=== PATIENT | female | born 2000 | race Caucasian/White ===

== ENCOUNTER 2019-02-10 14:38 | Emergency (ER) | payer BC ==
[~2019-02-10] VITALS: Ht 154.9 cm; Wt 60.2 kg
[2019-02-10 15:44] LABS: BASOPHILS % (AUTO) 0.3 % (0-1); EOSINOPHILS % (AUTO) 0.3 % (0-6); HEMATOCRIT 43.2 % (35.0-45.0); HEMOGLOBIN 14.6 g/dl (12.0-16.0); LYMPHOCYTES # (AUTO) 1.3 X10'3 (1.1-4.8); LYMPHOCYTES % (AUTO) 15.6 % (21-51); MEAN CORPUSCULAR HEMOGLOBIN 28.6 PG (27.0-31.0); MEAN CORPUSCULAR HGB CONC 33.7 g/dL (33.0-36.5); MEAN CORPUSCULAR VOLUME 85.1 FL (78-98); MEAN PLATELET VOLUME 7.9 FL (7.4-10.4); MONOCYTES # (AUTO) 0.7 X10'3 (0-0.9); MONOCYTES % (AUTO) 8.1 % (2-12); NEUTROPHILS % (AUTO) 75.7 % (42-75); PLATELET COUNT 299 X10'3 (140-440); RED BLOOD COUNT 5.08 X10'6 (4.20-5.60)
[2019-02-10 16:00] LABS: ALANINE AMINOTRANSFERASE 69 U/L (12-78); ALBUMIN 4.8 G/DL (3.4-5.0); ALBUMIN/GLOBULIN RATIO 1.3 (1.1-1.5); ALKALINE PHOSPHATASE 83 IU/L (20-180); ANION GAP 13 (8-16); ASPARTATE AMINO TRANSFERASE 30 U/L (10-37); BILIRUBIN,TOTAL 0.3 MG/DL (0.1-1.0); BLOOD UREA NITROGEN 18 MG/DL (7-18); CALCIUM 9.9 MG/DL (8.5-10.1); CHLORIDE 102 MMOL/L (99-107); CREATININE 0.75 MG/DL (0.40-0.90); GLUCOSE 95 MG/DL (70-104); POTASSIUM 4.5 MMOL/L (3.5-5.1); SODIUM 142 MMOL/L (135-145); TOTAL CARBON DIOXIDE 27.5 MMOL/L (24-32); TOTAL PROTEIN 8.5 G/DL (6.4-8.2); eGFR > 90 ML/MIN
[2019-02-10 16:12] LABS: ETHANOL < 0.010 GM/DL (0.0-0.010)
[2019-02-10 17:02] LABS: URINE HCG NEGATIVE (NEG)
[2019-02-10 17:08] LABS: CLARITY,URINE CLEAR (Clear); COLOR,URINE YELLOW (Yellow); GLUCOSE, URINE NEGATIVE (Neg); KETONES,URINE NEGATIVE (Neg); LEUKOCYTE ESTERASE ,URINE NEGATIVE (Neg); NITRITES, URINE NEGATIVE (Neg); OCCULT BLOOD,URINE NEGATIVE (Neg); PROTEIN,URINE NEGATIVE (Neg); UROBILINOGEN,URINE 0.2 E.U/dL (0.2-1.0)
--- NOTE | 2019-02-10 17:11 | NUR ---
pt placed in rm 21 from main ER, pt calm and cooperative. Accompanied by her parents. Pt is tearful. Oriented to unit. Urine sample obtained. Parents at bedside.
[2019-02-10 17:12] LABS: UA COLLECTION TYPE CLN CATCH MIDSTREAM
[2019-02-10 17:16] LABS: URINE AMPHETAMINE SCREEN NEGATIVE (Neg); URINE BARBITUATE SCREEN NEGATIVE (Neg); URINE BENZODIAZEPINES SCREEN NEGATIVE (Neg); URINE CANNABINOID SCREEN POSITIVE (Neg); URINE COCAINE SCREEN NEGATIVE (Neg); URINE METHADONE SCREEN NEGATIVE (Neg); URINE OPIATE SCREEN NEGATIVE (Neg); URINE PHENCYCLIDINE SCREEN NEGATIVE (Neg)
--- NOTE | 2019-02-10 17:26 | NUR ---
[facility]
--- NOTE | 2019-02-10 20:00 | NUR ---
One to one with the patient to assess for severity of mental health symptoms. The patient's parents are at the bedside and are very supportive of her but also very worried over increasingly bizarre and out of character behaviors. She has not slept at all for at least the past 4 days. 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 She has been binge eating. She at one point was eating the dog food in the house. She is very guarded and disorganized. She appears to be responding to internal stimuli. She admitted to hearing voices but then denied that she hears voices. She does not want to stay and seek psychiatric treatment. She has never been in a psychiatric facility.
[2019-02-10] MEDS ORDERED: OLANZapine 2.5MG tablet PO STA (20:25)
--- NOTE | 2019-02-10 21:30 | NUR ---
[facility] crisis staff here to evaluate the patient
--- NOTE | 2019-02-10 22:05 | NUR ---
The patient has consistently refused to take the zyprexa that was ordered for her.
--- NOTE | 2019-02-11 00:01 | NUR ---
The patient appears to be sleeping
--- NOTE | 2019-02-11 02:45 | NUR ---
The patient appears to be sleeping
--- NOTE | 2019-02-11 04:39 | NUR ---
The patient appears to be asleep at this time
[2019-02-11 05:56] VITALS: BP 113/73
--- NOTE | 2019-02-11 07:00 | NUR ---
Received Pt in bed sleeping w/o distress at change of shift.
[2019-02-11] MEDS ORDERED: OLANZapine 2.5MG tablet PO SCH (08:00)
--- NOTE | 2019-02-11 10:29 | NUR ---
breaking primary RN, pt is prone in bed, regular breathing present, eyes closed, no s/s of agitation observed
--- NOTE | 2019-02-11 11:25 | NUR ---
Pt remains in bed sleeping w/o distress. Pt slept through breakfast, ands allowed to do so because of multiple days of insomnia upon addmission. Pt has been accepted to [facility].
[2019-02-11] MEDS ORDERED: ESCI10TA PO (14:47)
[2019-02-11] MEDS ORDERED: OLAN5TAB3 PO (14:47)
== END 2019-02-11 14:30 | disposition home or self-care (01) ==
LOC: ER 14:38
DX: R45.851 Suicidal ideations (principal); F32.9 Major depressive disorder, single episode, unspecified; G47.00 Insomnia, unspecified
CPT/HCPCS: 36415; 80053; 80305; 80320; 81003; 81025; 84443; 85025; 99285

== ENCOUNTER 2019-02-11 10:35 | Inpatient (IN) | payer BC ==
[~2019-02-11] VITALS: Ht 154.9 cm; Wt 57.8 kg
[2019-02-11] MEDS ORDERED: ESCI10TA PO (14:47)
[2019-02-11] MEDS ORDERED: OLAN5TAB3 PO (14:47)
[2019-02-11] MEDS ORDERED: magnesium hydroxide 30ml (MOM) UD suspension PO PRN (14:55)
[2019-02-11] MEDS ORDERED: acetaminophen 325mg tablet PO PRN ×2 (14:55)
[2019-02-11] MEDS ORDERED: hydrOXYzine 25 MG tablet PO PRN (14:55)
[2019-02-11] MEDS ORDERED: loperamide 2mg capsule PO PRN (14:55)
[2019-02-11] MEDS ORDERED: mag hydrox/Alum hydrox/simeth 30ml oral suspension PO PRN (14:55)
[2019-02-11] MEDS ORDERED: LORazepam 1 MG tablet PO PRN (14:55)
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
[2019-02-11 17:32] VITALS: BP 138/90
[2019-02-11 20:53] VITALS: BP 144/63
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
[2019-02-12 08:00] VITALS: BP 121/79
[2019-02-12 08:16] LABS: CHOL/HDL RATIO 2.7 (0.00-4.99); CHOLESTEROL 176 MG/DL (0-200); HDL CHOLESTEROL 66 MG/DL (35-60); LDL CHOLESTEROL 104 MG/DL (50-100); TRIGLYCERIDES 86 MG/DL (20-135)
[2019-02-12 08:19] LABS: HEMOGLOBIN A1C 5.3 % (4.5-6.2)
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
[2019-02-12 20:00] VITALS: BP 121/77
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
[2019-02-13 08:35] VITALS: BP 130/91
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
[2019-02-13 19:57] VITALS: BP 138/93
[2019-02-13 19:58] VITALS: BP 122/81
[2019-02-13] MEDS ORDERED: OLANZapine 2.5MG tablet PO SCH (21:00)
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
[2019-02-14] MEDS ORDERED: FLUoxetine 20mg capsule PO SCH (08:00)
[2019-02-14 08:37] VITALS: BP 121/87
[2019-02-14] MEDS ORDERED: OLAN2.5T28 PO (13:06)
[2019-02-14] MEDS ORDERED: FLUO20CA22 PO (13:06)
--- NOTE | 2019-02-14 13:53 | NUR ---
Discharge note: Client is discharging home at 1400 hours today. Client condition has greatly improved and she is no longer gravely disabled. All belongings were returned to client satisfaction. Client will be escorted home by family members. All follow up information was relayed to client and she gave a verbal rebound demo of understanding and states she will comply with the conditions of her discharge. She has her prescriptions and her [facility] choice is [facility] in [place]. Client is alert and oriented x 4 and is aware of all conditions of discharge.
== END 2019-02-14 14:00 | disposition home or self-care (01) | DRG 885 ==
LOC: ADULT MH 14:42
PROVIDERS: ADMIT Psychiatry & Neurology Psychiatry; ATTEND Psychiatry & Neurology Psychiatry
DX: F33.1 Major depressive disorder, recurrent, moderate (principal); F12.90 Cannabis use, unspecified, uncomplicated; F29 Unspecified psychosis not due to a substance or known physiological condition; F41.9 Anxiety disorder, unspecified; Z88.0 Allergy status to penicillin; Z86.59 Personal history of other mental and behavioral disorders; Z79.899 Other long term (current) drug therapy
CPT/HCPCS: 36415; 80061; 83036; 87081

== ENCOUNTER 2024-10-07 18:50 | Inpatient (IN) | payer BC ==
[~2024-10-07] VITALS: Ht 154.9 cm; Wt 55.7 kg
[~2024-10-07 18:50] MED LIST: FLUO-167 PO; OLAN2.5T77 PO
[2024-10-07 20:12] VITALS: BP 129/93; PULSE 93; RESP 20; TEMP 98.1; O2SAT 99
[2024-10-07] MEDS ORDERED: loperamide 2mg capsule PO PRN (20:45)
[2024-10-07] MEDS ORDERED: diphenhydrAMINE 25mg capsule PO PRN (20:45)
[2024-10-07] MEDS ORDERED: acetaminophen 325mg tablet PO PRN ×2 (20:45)
[2024-10-07] MEDS ORDERED: magnesium hydroxide 30ml (MOM) UD suspension PO PRN (20:45)
[2024-10-07] MEDS ORDERED: chlorproMAZINE 25mg tablet PO PRN (20:45)
[2024-10-07] MEDS ORDERED: mag hydrox/Alum hydrox/simeth 30ml oral suspension PO PRN (20:45)
[2024-10-07 21:00] VITALS: RESP 20; O2SAT 99
[2024-10-07] MEDS ORDERED: DESV25TA PO (22:35)
[2024-10-07] MEDS ORDERED: LAMO25TA4 PO (22:35)
[2024-10-08 07:30] VITALS: BP 121/83; PULSE 83; RESP 16; TEMP 97.9; O2SAT 99
[2024-10-08] MEDS: DESVENLAFAXINE 25 MG PO SCH (08:00)
[2024-10-08] MEDS: lamoTRIgine 100mg tablet PO SCH (08:39)
[2024-10-08 08:53] LABS: HEMOGLOBIN A1C 5.1 % (4.5-6.2)
[2024-10-08 09:02] LABS: ALANINE AMINOTRANSFERASE 29 U/L (12-78); ALBUMIN 4.5 G/DL (3.4-5.0); ALBUMIN/GLOBULIN RATIO 1.3 (1.1-1.5); ALKALINE PHOSPHATASE 87 IU/L (46-116); ANION GAP 10 (8-16); ASPARTATE AMINO TRANSFERASE 16 U/L (10-37); BILIRUBIN,TOTAL 0.7 MG/DL (0.1-1.0); BLOOD UREA NITROGEN 13 MG/DL (7-18); BUN/CREATININE RATIO 17.6 (10.0-20.0); CALCIUM 9.7 MG/DL (8.5-10.1); CHLORIDE 102 MMOL/L (99-107); CHOL/HDL RATIO 2.3 (0.00-4.99); CHOLESTEROL 158 MG/DL (0-200); CREATININE 0.74 MG/DL (0.40-0.90); GLUCOSE 110 MG/DL (70-104); HDL CHOLESTEROL 69 MG/DL (35-60); LDL CHOLESTEROL 82 MG/DL (50-100); POTASSIUM 4.4 MMOL/L (3.5-5.1); SODIUM 138 MMOL/L (135-145); TRIGLYCERIDES 50 MG/DL (20-135); eCRCL 87 ML/MIN; eGFR > 90 ML/MIN
--- NOTE | 2024-10-08 13:11 | HISTORY AND PHYSICAL ---
History & Physical - Blank History and Physical CHIEF COMPLIANT DELUSIONS AND SUICIDAL IDEATIONS HISTORY OF PRESENT ILLNESS The patient is here because she is delusional and having suicidal ideation. She has been taking her medications but her symptoms are not adequately controlled and she is now exhibiting some hallucinations and delusional behavior. CHART REVIEW Patient admitted on a 5150 for DTS. 5150 states that patient is "having suicidal thoughts and is not able to articulate a plan for her own safety due to mental health history and disorganized thinking the client is danger to self". Nurse to nurse with [facility] at [facility] completed and report was given that patient had PRN lorazepam at 1817 related to "increased anxiety and making delusional statements about FBI". 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 She resumed taking prescribed medications on 10/04/24 due to "increased voices and suicidal thoughts". Patient is well groomed, cooperative, and pleasant. Patient confirms AH of "whispers and movement". Patient endorses SI with plan to "overdose on home medications" but contracts for safety while on the unit. ASSESSMENT The patient was interviewed in observation room. The patient was actively resting in bed with eyes. The patient endorses "I just been lying to everybody that I have been going to work and when I am at work I been high on THC gummies and pen." "I have bipolar in the past I been here before and I was scaring my parents I was on medications and I stopped I convinced people I was not Bipolar I have bulimia. I still do it, eat and then throw up." "Even though sometimes I go days binging and purging." I never was on anything for it." "I was seeing a therapist but I stopped because I thought everything I was fine." "I have been going to a psychiatrist but I just been lying to her." "that everything is fine and that i don't call her when I probably should because I am missing work." Yes, I am depressed." "I am suicidal with a plan to drive into something." Denies HI. Denies AVH. "I haven't taken my meds over a day or so." The patient is stable no acute distress noted. The patietn presents as tearful, and distracted. Will continue daily assessment and adjusting treatment as needed. Closely monitor behavior and response to medication during hospitalization. Discussed treatment plan with patient. ASE/risks and benefits of chosen treatment. She verbalized understanding and consented to treatment. Collateral received from the patient's mother Merissa, with patient's consent. Merissa endorses Lynne is staying with her at the moment due to her recent psychotic break to ensure she is taking her medications. Merissa endorses Lynne does have her own apartment and lives with a roommate. Merissa endorses Lynne stopped attending therapy for about 6 months and she been off her meds for a few days ago. Merissa endorses she will email Lynne's gene-X results. Merissa endorses Latuda worked really well in the past for Lynne but she just stopped taking it. Merissa endorses she will drop off Lynne's pristiq. REVIEW OF LABS URINE TOX SCREEN POSITIVE FOR THC URINALYSIS NEGATIVE MENTAL STATUS EXAM APPEARANCE: AVERAGE WEIGHT AND HEIGHT FEMALE. DRESSED IN GREEN SCRUBS. LONG DARK BROWN HAIR. SPEECH: CIRCUMSTANTIAL EYE CONTACT: AVOIDANT ATTENTION: DISTRACTED AFFECT: LIABLE MOOD: DEPRESSED ORIENTATION IMPAIRMENT: NONE MEMORY IMPAIRMENT: NONE HALLUCINATIONS: NONE SUICIDALITY: IDEATION,PLAN DELUSIONS: NONE BEHAVIOR: GUARDED JUDGMENT: POOR INSIGHT: POOR Total Time Spent 120 minutes TREATMENT LAMOTRIGINE 100 MG P.O. Q.H.S. LATUDA 40 MG P.O. WITH SUPPER COGENTIN 1 MG P.O. B.I.D. PRISTIQ 25MG PO DAILY Monitoring by Staff, Milieu, Group, and Individual counseling as needed -- According to the [place] Suicide Assessment the above named patient is on Q15 MINUTE CHECKS. [id number]- The patient does not have a good safety plan for discharge at this time. We are still titrating medications to an effective dose while maintaining a therapeutic environment to prevent decompensation and readmission. REVIEW OF Clinical notes [X ] RN notes [X] PCT documentation [X] SW notes Labs [ X] Medications [X] Care trends/care activity [X] Vitals [X] DISCUSSION WITH welcome wagon hostess [X] Staff SW [X] Treatment Team [X] DISCHARGE UNSURE AT THIS TIME. DISCHARGE HOME ONCE STABLE. Past Psychiatric History Past Psychiatric History [facility] Past Medical History Past Medical History SEE MEDICAL H AND P Past Surgical History Past Surgical History DENIES ANY SURGICAL HISTORY Past Family History Patient History: Patient reports no known family medical history. Personal History Current Living Situation LIVES WITH A ROOMMATE IN AN APARTMENT Marital & Relationship History NEVER . 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
--- NOTE | 2024-10-08 18:34 | HISTORY AND PHYSICAL-Residence ---
History & Physical Providers to CC Resident Creating Document: FAREED BA RES ~ History of Present Illness Reason for Admit\\Complaint: DELUSIONS AND SUICIDAL IDEATIONS History of Present Illness 18 cc HTN female with medical history of nicotine use, marijuana use, alcohol use.admitted on a 5150 for DTS. 5150 states that patient is "having suicidal thoughts and is not able to articulate a plan for her own safety due to mental health history and disorganized thinking the client is danger to self". Nurse to nurse with Emer[facility] at [facility] completed and report was given that patient had PRN lorazepam at 1817 related to "increased anxiety and making delusional statements about FBI". 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 She resumed taking prescribed medications on 10/04/24 due to "increased voices and suicidal thoughts". Patient is well groomed, cooperative, and pleasant. Patient confirms AH of "whispers and movement". Patient endorses SI with plan to "overdose on home medications" but contracts for safety while on the unit. She denied chest pain, shortness of breath, palpitations, wheezing, fever, cough, abdominal pain, abdominal distention, decreased urine output, pedal edema, facial puffiness, rash. Allergies: Coded Allergies: Penicillins (Verified Allergy, Unknown, RASH, 10/07/24) Home Medications Home Medications Active Reported Pristiq ER (Desvenlafaxine Succinate) 25 Mg Tab.er.24h 1 Tab PO DAILY 30 Days Lamictal (Lamotrigine) 25 Mg Tab.disper 4 Tab PO DAILY 30 Days Past Medical History Past Medical History Nicotine use Marijuana use Alcohol use Past Surgical History Surgical History Comment Noncontributory Family History Family History: Patient reports no known family medical history. Past Social History Smoking: Quit greater than 1 year Alcohol Use: None Drug Use: None ROS ROS Reviewed in full and negative except positive pertinent as in the HPI Exam Vitals: Vital Signs Date Time Temp Pulse Resp B/P (MAP) Pulse Ox O2 Delivery O2 Flow Rate FiO2 10/08/24 07:30 Room Air 10/08/24 07:30 97.9 83 16 121/83 (96) 99 General: Physical Exam General: Alert, awake, oriented to time place person. Not in acute distress. HEENT: No pallor, no icterus. No JVD. No carotid upstroke, Cardiovascular system: Regular rate and rhythm. First and second heart sound are heard. No murmurs rubs Respiratory system: Bilateral vesicular breath sounds are heard. No crepitations. No expiratory wheezing Gastrointestinal: Nontender, Soft, nondistended, no rigidity, no guarding, no rebound tenderness Extremities: No clubbing, no edema, no cyanosis Central nervous system: No function neurological deficits Diagnostic Data Last Recorded Lab Results: 10/08/24 0754 Advance Care Planning Advanced Care planning: Add on additional 30 min Additional Plan Assessment and plan per [facility] unit and hospitalist Internal Medicine team we will follow up the patient for medical needs Bipolar one disorder, depressive Major depressive disorder Suicidal ideations For above problems -Management plan per [facility] unit Marijuana use Alcohol use Patient may need social service agency director and substance use consults Vitals are stable CBC is ordered CMP is normal with A1c 5.1 and LDL 82 [facility]ed [facility] IM resident Date of Service: October 08, 2024 Billing Provider: BJ HERNANDEZ MD Common Visit Codes: [id number] INP/OBS CARE (HIGH) FAREED BA, АНДРЕЙ October 08, 2024 18:34 BJ HERNANDEZ MD October 08, 2024 20:30
[2024-10-08 19:00] VITALS: RESP 16; O2SAT 98
[2024-10-08 20:00] VITALS: BP 117/63; PULSE 84; RESP 16; TEMP 97.9; O2SAT 98
[2024-10-08] MEDS: hydrOXYzine 25 MG tablet PO PRN (20:08)
[2024-10-08] MEDS: traZODone 50mg tablet PO PRN (20:09)
[2024-10-09 07:30] VITALS: BP 111/71; PULSE 96; RESP 14; TEMP 97.8; O2SAT 98
[2024-10-09 08:21] LABS: BASOPHILS # (AUTO) 0.1 X10'3 (0-0.2); EOSINOPHILS # (AUTO) 0.1 X10'3 (0-0.9); EOSINOPHILS % (AUTO) 1.7 % (0-6); HEMATOCRIT 43.1 % (35.0-45.0); HEMOGLOBIN 14.1 g/dl (12.0-16.0); LYMPHOCYTES # (AUTO) 1.4 X10'3 (1.1-4.8); LYMPHOCYTES % (AUTO) 19.2 % (21-51); MEAN CORPUSCULAR HEMOGLOBIN 29.2 PG (27.0-31.0); MEAN CORPUSCULAR HGB CONC 32.6 g/dL (33.0-36.5); MEAN CORPUSCULAR VOLUME 89.6 FL (78-98); MONOCYTES # (AUTO) 0.6 X10'3 (0-0.9); MONOCYTES % (AUTO) 8.4 % (2-12); NEUTROPHILS % (AUTO) 69.7 % (42-75); PLATELET COUNT 308 X10'3 (140-440); RED BLOOD COUNT 4.81 X10'6 (4.20-5.60); RED CELL DISTRIBUTION WIDTH 15.4 % (11.5-14.5); WHITE BLOOD COUNT 7.2 X10'3 (4.5-11.0)
--- NOTE | 2024-10-09 17:42 | PROGRESS NOTE ---
Progress Note Dictate Providers to CC ~ Central Line/PICC still needed: N\\A Antibiotic Ordered?: No Objective Vitals Vital Signs Date Time Temp Pulse Resp B/P (MAP) Pulse Ox O2 Delivery O2 Flow Rate FiO2 10/09/24 07:30 Room Air 10/09/24 07:30 97.8 96 14 111/71 (84) 98 Lab Results: 10/08/24 1818 10/08/24 0754 Problem\\Assessment\\Plan Problems/Diagnosis: (1) MDD (major depressive disorder) (2) Psychosis (3) Suicidal ideations (4) Bulimia nervosa Psychiatrist's Progress Note Date of Service: October 09, 2024 Notes Lynne Collins is a 24yo patient who presented to the ED because she is delusional and having suicidal ideation. She has been taking her medications but her symptoms are not adequately controlled and she is now exhibiting some hallucinations and delusional behavior. CHART REVIEW Patient admitted on a 5150 for DTS. 5150 states that patient is "having suicidal thoughts and is not able to articulate a plan for her own safety due to mental health history and disorganized thinking the client is danger to self". Nurse to nurse with [facility] at [facility] completed and report was given that patient had PRN lorazepam at 1817 related to "increased anxiety and making delusional statements about FBI". Patient states she was diagnosed with Bipolar DO and took medication for 6 years before becoming non-compliant with medication one year ago due to "interaction with marijuana use". She resumed taking prescribed medications on 10/04/24 due to "increased voices and suicidal thoughts". Patient is well groomed, cooperative, and pleasant. Patient confirms AH of "whispers and movement". Patient endorses SI with plan to "overdose on home medications" but contracts for safety while on the unit. Patient is a short patient of normal weight. has long dark unwashed greasy hair. She has severely chapped lips. 'I'm a danger to myself and others.' She started to cry. Looks severely depressed. 'I just want to walk.' Poverty of content/speech. Delayed responses with thought blocking and loosening of associations. 'I took a walk and parents came in... everything was fine and... (she starts to cry)...' Feeling really depressed right now. Been going on just today... 'I was sleeping then parents came in and people have been doing everything for me and it's not fair.' 'Everything why I'm here. I want to not be in trouble.' 'I should be in trouble.' 'Because I've done things and not been caught for it.' She feels she should go to long-term. Then changed into clothes and now I'm being a baby... even though I don't have babies.' 'I need to get better for my family.' Denies feeling suicidal currently. Gets a lot of anxiety. Feeling that making eye contact with people. Social anxiety. Being in big crowds and a lot of noise. Having AH. People are talking around me. The voices say 'they don't want to be here. No one wants to be here. The best thing to do it just be good and just be good and have good posture... be polite...' Sometimes hears it would be better off if she weren't here. 'just be good for my parents... I keep saying the same things over and over' Denies VH. Denies Paranoia. 'not anymore.' When she was smoking weed a lot she would get paranoid. 'I just don't know my limits and I just don't care about myself.' Sleep- Slept last night. Sleeping at home. Sometimes sleep too much. Bed at 9- 10pm takes a little a bit to get to sleep. Not waking up multiple times. Get up around 7am almost naturally. Thought she could do it without meds. 'I think I know what I need to do.' 'I need to stay on my medicine.' And once she knows I take it in the morning... and do things during the day and then go to bed.' Starting to feel better on meds. Thinking clears up. Not thinking the FBI is out to get her. 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 Started struggling with mental illness for a long time. Smokes MJ 'I just need to not go buy it.' Goes to see Janet Isaacs office. Has an appt with Janet on . 'I've messed up everything.' 'Not being responsible.' 'put people in danger.' 'my parents, everyone.' 'by not being smart and not being clean.' 'I feel like I need to look people in the eye now.' Feeling a little confused. She states she needs someone to help her with meds. So that she remembers them. She gets frustrated with herself because she feels confused. 'I just keep talking in circles and walking in circles... I just need to be locked in a room.' Very unsure of herself and what she was 'supposed to do next.' Hard to make decision. Didn't want to leave the interview room. Was very fearful. Charmaine -- [phone] Dora's cell number Mental Status Eye contact:Intermittent; Behavior: Cooperative.Anxious. Fearful Speech: Paucity of speech. Thought blocking. Delayed answers. Speaking softly. Mood: Depressed/anxious/paranoid Affect: Flat. Thought process: Disorganized, Circumstantial/Tangential, thought blocking, loosening of associations. Paranoid Delusions. Thought Content: immediate needs/medications. Cognition: A&O X4; Insight: Poor but seems to be in and out d/t confusion.; Judgment: Fair- She knows she needs to restart meds and stop using MJ; SI Denies/HI Denies, AH Possibly?/VH Denies Results Of any Diagn. Testing REVIEW OF LABS URINE TOX SCREEN POSITIVE FOR THC URINALYSIS NEGATIVE Treatment Patient is quite psychotic. She is disorganized, thought blocking and loosening of associations. She if quite paranoid and making delusional statements. Need to add back the Latuda to help cover this. Patient seems to have a hx of Bipolar 1 disorder, but this is not her current presentation. She appears very depressed and more psychotic than anything. There has been some significant THC use which can cause psychosis which this could be. Differential Dx would be schizophrenia, schizoaffective disorder (if she is bipolar- undetermined by myself), Major depression with psychotic features, or substance induced psychosis (THC) ADD BACK LATUDA 40 MG P.O. WITH SUPPER LAMOTRIGINE 100 MG P.O. Q.H.S. PRISTIQ 25 MG PO DAILY Monitoring by Staff, Milieu, Group, and Individual counseling as needed -- According to the [place] Suicide Assessment the above named patient is on Q15 MINUTE CHECKS. [id number]- The patient does not have a good safety plan for discharge at this time. We are still titrating medications to an effective dose while maintaining a therapeutic environment to prevent decompensation and readmission. DISCHARGE Home once back on meds REVIEW OF Clinical notes [X ] RN notes [X] PCT documentation [X] SW notes [X] Labs [ X] Medications [X] Care trends/care activity [X] Vitals [X] DISCUSSION WITH commodities requirements analyst [X] Staff SW Treatment Team CODING VISIT-PSYCHIATRY Date of Service: October 09, 2024 Billing Provider: ARTHUR CARPENTER Psych Common Visit Codes: [id number] INP/OBS CARE(High) Problem Qualifiers (1) MDD (major depressive disorder): (2) Psychosis: (3) Bulimia nervosa: Qualified Codes: F50.20 - Bulimia nervosa, unspecified ARTHUR CARPENTER October 09, 2024 17:42
[2024-10-09] MEDS: lurasidone 20mg tablet PO SCH (18:41)
[2024-10-09 19:00] VITALS: RESP 16; O2SAT 99
[2024-10-09 20:00] VITALS: BP 119/75; PULSE 70; RESP 16; TEMP 98.8; O2SAT 99
[2024-10-10 07:00] VITALS: RESP 12; O2SAT 96
[2024-10-10 08:00] VITALS: BP 118/82; PULSE 82; RESP 12; TEMP 98.2; O2SAT 96
[2024-10-10] MEDS ORDERED: LAMO100T PO (13:32)
[2024-10-10] MEDS ORDERED: LURA20TA2 PO (13:32)
[2024-10-10] MEDS ORDERED: TRAZ-251 PO (13:32)
[2024-10-10] MEDS ORDERED: HYDR-3686 PO (13:32)
--- NOTE | 2024-10-10 15:09 | DISCHARGE SUMMARY ---
Discharge Summary Providers to CC ~ Discharge Summary Admission Diagnosis: Bipolar 1 disorder, depressed, SI, MDD Hospital Course DATE OF ADMISSION: 10/07/2024 DATE OF DISCHARGE: 10/10/2024 Discharge Diagnosis\\Comment: MDD severe. psychosis nos, bulimia nervosa, SI Operations\\Procedures: None Consultants: Hospitalists consulted with medical needs Complications: None Condition on DC: Stable 2 or more antipsychotic used: No 2/more antipsychotic addressed: No Does Patient smoke: No Smoking education given.: No New Medications: Hydroxyzine Hcl* (Atarax*) 25 Mg Tablet 50 MG PO Q6H PRN for anxiety for 14 Days, #14 TAB Lamotrigine (LaMICtal tablet) 100 Mg Tablet 100 MG PO DAILY for 14 Days, #14 TAB Lurasidone HCl (Lurasidone HCl) 20 Mg Tablet 40 MG PO QDD for 14 Days, #14 TAB Trazodone HCl (Trazodone HCl) 50 Mg Tablet 50 MG PO HS PRN for Insomnia for 14 Days, #14 TAB Continued Medications: Desvenlafaxine Succinate (Pristiq ER) 25 Mg Tab.er.24h 1 TAB PO DAILY for 30 Days, #30 TAB 0 Refills Discharge Summary: History & Physical - MIRELA NORRIS APRN October 08, 2024 13:11 History and Physical CHIEF COMPLIANT DELUSIONS AND SUICIDAL IDEATIONS HISTORY OF PRESENT ILLNESS The patient is here because she is delusional and having suicidal ideation. She has been taking her medications but her symptoms are not adequately controlled and she is now exhibiting some hallucinations and delusional behavior. CHART REVIEW Patient admitted on a 5150 for DTS. 5150 states that patient is "having suicidal thoughts and is not able to articulate a plan for her own safety due to mental health history and disorganized thinking the client is danger to self". Nurse to nurse with Emery at [facility] completed and report was given that patient had PRN lorazepam at 1817 related to "increased anxiety and making delusional statements about FBI". 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 She resumed taking prescribed medications on 10/04/24 due to "increased voices and suicidal thoughts". Patient is well groomed, cooperative, and pleasant. Patient confirms AH of "whispers and movement". Patient endorses SI with plan to "overdose on home medications" but contracts for safety while on the unit. ASSESSMENT The patient was interviewed in observation room. The patient was actively resting in bed with eyes. The patient endorses "I just been lying to everybody that I have been going to work and when I am at work I been high on THC gummies and pen." "I have bipolar in the past I been here before and I was scaring my parents I was on medications and I stopped I convinced people I was not Bipolar I have bulimia. I still do it, eat and then throw up." "Even though sometimes I go days binging and purging." I never was on anything for it." "I was seeing a therapist but I stopped because I thought everything I was fine." "I have been going to a psychiatrist but I just been lying to her." "that everything is fine and that i don't call her when I probably should because I am missing work." Yes, I am depressed." "I am suicidal with a plan to drive into something." Denies HI. Denies AVH. "I haven't taken my meds over a day or so." The patient is stable no acute distress noted. The patient presents as tearful, and distracted. Will continue daily assessment and adjusting treatment as needed. Closely monitor behavior and response to medication during hospitalization. Discussed treatment plan with patient. ASE/risks and benefits of chosen treatment. She verbalized understanding and consented to treatment. Collateral received from the patient's mother Merissa, with patient's consent. Merissa endorses Lynne is staying with her at the moment due to her recent psychotic break to ensure she is taking her medications. Merissa endorses Lynne does have her own apartment and lives with a roommate. Merissa endorses Lynne stopped attending therapy for about 6 months and she been off her meds for a few days ago. Merissa endorses she will email Lynne's gene-X results. Merissa endorses Latuda worked really well in the past for Lynne but she just stopped taking it. Merissa endorses she will drop off Lynne's pristiq. REVIEW OF LABS URINE TOX SCREEN POSITIVE FOR THC URINALYSIS NEGATIVE MENTAL STATUS EXAM APPEARANCE: AVERAGE WEIGHT AND HEIGHT FEMALE. DRESSED IN GREEN SCRUBS. LONG DARK BROWN HAIR. SPEECH: CIRCUMSTANTIAL EYE CONTACT: AVOIDANT ATTENTION: DISTRACTED AFFECT: LIABLE MOOD: DEPRESSED ORIENTATION IMPAIRMENT: NONE MEMORY IMPAIRMENT: NONE HALLUCINATIONS: NONE SUICIDALITY: IDEATION,PLAN DELUSIONS: NONE BEHAVIOR: GUARDED JUDGMENT: POOR INSIGHT: POOR Total Time Spent 120 minutes TREATMENT LAMOTRIGINE 100 MG P.O. Q.H.S. LATUDA 40 MG P.O. WITH SUPPER COGENTIN 1 MG P.O. B.I.D. PRISTIQ 25MG PO DAILY Monitoring by Staff, Milieu, Group, and Individual counseling as needed -- According to the [place] Suicide Assessment the above named patient is on Q15 MINUTE CHECKS. [id number]- The patient does not have a good safety plan for discharge at this time. We are still titrating medications to an effective dose while maintaining a therapeutic environment to prevent decompensation and readmission. REVIEW OF Clinical notes [X ] RN notes [X] PCT documentation [X] SW notes Labs [ X] Medications [X] Care trends/care activity [X] Vitals [X] DISCUSSION WITH fork truck driver [X] Staff SW [X] Treatment Team [X] DISCHARGE UNSURE AT THIS TIME Past Psychiatric History Past Psychiatric History [facility] Past Medical History Past Medical History SEE MEDICAL H AND P Past Surgical History Past Surgical History DENIES ANY SURGICAL HISTORY Past Family History Patient History: Patient reports no known family medical history. Personal History Current Living Situation LIVES WITH A ROOMMATE IN AN APARTMENT Marital & Relationship History NEVER . 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 Social Activity BORN AND RAISED IN [place] 1 BROTHER GREW UP IN 2-PARENT HOUSEHOLD [employer]UATED HIGH [employer] Sabianist DENIES Legal History DENIES ANY LEGAL HISTORY History DENIES ANY HISTORY Developmental History Childhood DENIES ANY FORM OF ABUSE Lab Results: 10/08/24 1818 10/08/24 0754 Problem\\Assessment\\Plan Problems/Diagnosis: (1) MDD (major depressive disorder) (2) Psychosis (3) Suicidal ideations (4) Bulimia nervosa Psychiatrist's Progress Note Psychiatrist's Progress Note ARTHUR CARPENTER 2024 17:42 Date of Service: October 09, 2024 Notes Lynne Collins is a 24yo patient who presented to the ED because she is delusional and having suicidal ideation. She has been taking her medications but her symptoms are not adequately controlled and she is now exhibiting some hallucinations and delusional behavior. CHART REVIEW Patient admitted on a 5150 for DTS. 5150 states that patient is "having suicidal thoughts and is not able to articulate a plan for her own safety due to mental health history and disorganized thinking the client is danger to self". Nurse to nurse with Emery at [facility] completed and report was given that patient had PRN lorazepam at 1817 related to "increased anxiety and making delusional statements about FBI". Patient states she was diagnosed with Bipolar DO and took medication for 6 years before becoming non-compliant with medication one year ago due to "interaction with marijuana use". She resumed taking prescribed medications on 10/04/24 due to "increased voices and suicidal thoughts". Patient is well groomed, cooperative, and pleasant. Patient confirms AH of "whispers and movement". Patient endorses SI with plan to "overdose on home medications" but contracts for safety while on the unit. Patient is a short patient of normal weight. has long dark unwashed greasy hair. She has severely chapped lips. 'I'm a danger to myself and others.' She started to cry. Looks severely depressed. 'I just want to walk.' Poverty of content/speech. Delayed responses with thought blocking and loosening of associations. 'I took a walk and parents came in... everything was fine and... (she starts to cry)...' Feeling really depressed right now. Been going on just today... 'I was sleeping then parents came in and people have been doing everything for me and it's not fair.' 'Everything why I'm here. I want to not be in trouble.' 'I should be in trouble.' 'Because I've done things and not been caught for it.' She feels she should go to penitentiary. Then changed into clothes and now I'm being a baby... even though I don't have babies.' 'I need to get better for my family.' Denies feeling suicidal currently. Gets a lot of anxiety. Feeling that making eye contact with people. Social anxiety. Being in big crowds and a lot of noise. Having AH. People are talking around me. The voices say 'they don't want to be here. No one wants to be here. The best thing to do it just be good and just be good and have good posture... be polite...' Sometimes hears it would be better off if she weren't here. 'just be good for my parents... I keep saying the same things over and over' Denies VH. Denies Paranoia. 'not anymore.' When she was smoking weed a lot she would get paranoid. 'I just don't know my limits and I just don't care about myself.' Sleep- Slept last night. Sleeping at home. Sometimes sleep too much. Bed at 9- 10pm takes a little a bit to get to sleep. Not waking up multiple times. Get up around 7am almost naturally. Thought she could do it without meds. 'I think I know what I need to do.' 'I need to stay on my medicine.' And once she knows I take it in the morning... and do things during the day and then go to bed.' Starting to feel better on meds. Thinking clears up. Not thinking the FBI is out to get her. 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 Started struggling with mental illness for a long time. Smokes MJ 'I just need to not go buy it.' Goes to see Janet Fortune THREAD MARKER Dr Isaacs office. Has an appt with Janet on . 'I've messed up everything.' 'Not being responsible.' 'put people in danger.' 'my parents, everyone.' 'by not being smart and not being clean.' 'I feel like I need to look people in the eye now.' Feeling a little confused. She states she needs someone to help her with meds. So that she remembers them. She gets frustrated with herself because she feels confused. 'I just keep talking in circles and walking in circles... I just need to be locked in a room.' Very unsure of herself and what she was 'supposed to do next.' Hard to make decision. Didn't want to leave the interview room. Was very fearful. Charmaine -- [phone] Dora's cell number Mental Status Eye contact:Intermittent; Behavior: Cooperative.Anxious. Fearful Speech: Paucity of speech. Thought blocking. Delayed answers. Speaking softly. Mood: Depressed/anxious/paranoid Affect: Flat. Thought process: Disorganized, Circumstantial/Tangential, thought blocking, loosening of associations. Paranoid Delusions. Thought Content: immediate needs/medications. Cognition: A&O X4; Insight: Poor but seems to be in and out d/t confusion.; Judgment: Fair- She knows she needs to restart meds and stop using MJ; SI Denies/HI Denies, AH Possibly?/VH Denies Results Of any Diagn. Testing REVIEW OF LABS URINE TOX SCREEN POSITIVE FOR THC URINALYSIS NEGATIVE Treatment Patient is quite psychotic. She is disorganized, thought blocking and loosening of associations. She if quite paranoid and making delusional statements. Need to add back the Latuda to help cover this. Patient seems to have a hx of Bipolar 1 disorder, but this is not her current presentation. She appears very depressed and more psychotic than anything. There has been some significant THC use which can cause psychosis which this could be. Differential Dx would be schizophrenia, schizoaffective disorder (if she is bipolar- undetermined by myself), or Major depression with psychotic features, or substance induced psychosis (THC) ADD BACK LATUDA 40 MG P.O. WITH SUPPER LAMOTRIGINE 100 MG P.O. Q.H.S. PRISTIQ 25 MG PO DAILY Monitoring by Staff, Milieu, Group, and Individual counseling as needed -- According to the [place] Suicide Assessment the above named patient is on Q15 MINUTE CHECKS. [id number]- The patient does not have a good safety plan for discharge at this time. We are still titrating medications to an effective dose while maintaining a therapeutic environment to prevent decompensation and readmission. DISCHARGE Home once back on meds CODING VISIT-PSYCHIATRY CODING VISIT-PSYCHIATRY Date of Service: October 09, 2024 Billing Provider: ARTHUR CARPENTER Psych Common Visit Codes: [id number] INP/OBS CARE(High) Problem Qualifiers (1) MDD (major depressive disorder): (2) Psychosis: (3) Bulimia nervosa: Qualified Codes: F50.20 - Bulimia nervosa, unspecified DISCHARGE: Lynne Collins a 24yo female was seen and examined by myself, RANDY Bello on day of discharge, October 10, 2024. I spoke at length with Lynne Chappell's father. He states that he and his feel completely capable of helping to keep her safe while she stays with them. He talked about her first episode was admitted to [place] [id number]. First time she had a psychotic depression then dx with Dx with Bipolar 1. She has been struggling. She stopped her meds. Responded well with the Latuda. About 2 months ago tried to get her back connected with Dr Douglas's office - Janet Fortune THREAD MARKER. He states she was making a lot of paranoid and delusional statements and responding to internal stimuli. We talked at length about her THC use and can also be the cause or exacerbate the psychosis. Lynne was seen in the interview room today. Her affect is a little brighter and she even laughed at something I joked about. She was tearful at times. Admits to feeling quite paranoid about things. She is still feeling some confusion about what is real and what is not. She is unsure but does not think she is having AH/VH. She denies having any thoughts of harming herself. She is agreeable to allowing her parents to oversee her medications and her care while she is recovering. Long discussion on medications and importance of staying on them. Staying connected with psychiatry and counseling. She is very agreeable to this as well. She has a lot of Thought blocking and loosening of associations. Hard time expressing what she feels. She starts a sentence then starts another sentence and does not finish a thought. 'I kind of tore up everything for some reason.' The paper she had that said she was leaving. Still feels like she is doing everything wrong. Feeling scared and paranoid and hard time leaving her room. She does say 'I have a job.' 'I'm just... destroying everything and tearing stuff up... (she tore up her original 5150)... Feeling confused about what is going on around her and if it's real or not. Listening to different voices. Unsure if it's in her head or outside of her. 'I don't know people's names and their face.' Feels she would do better at home. Going to go stay with parents. Still feeling depressed but doesn't feel like hurting herself or anyone else. She realizes how important it is to stay on her medications. She will let her parents dispense them. Her pharmacy is [facility] [address] and they are open until 8pm so she can get her medications. She states she is eating okay/drinking and has not been purging. Last normal BM was today. Discussed constipation and what to watch for. Differential Dx would be schizophrenia, schizoaffective disorder (if she is bipolar- undetermined by myself), Major depression with psychotic features, or substance induced psychosis (THC) Risk Assessment: At discharge, Lynne's risk for self-harm has been assessed as very low. She no longer expresses suicidal ideation and has a safety plan in place. She understands the importance of following through with her treatment plan and maintaining her medication regimen. Medication: Lynne is discharged with a 14day supply of all her medications and prescribed for continuity of care. Medications reviewed with patient. Follow-Up Care: Lynne will connect with Janet Fortune NP at Dr Douglas's office for an appointment she has this coming . She will get reconnected with counseling. Emergency Plan: Lynne and parents have been advised to contact emergency services at 911 or [phone] if she experiences any resurgence of suicidal thoughts or other psychiatric emergencies. *Problems/Diagnosis: (1) MDD (major depressive disorder) Status: Chronic (2) Psychosis Status: Chronic (3) Suicidal ideations Status: Resolved (4) Bulimia nervosa Status: Chronic Total Time Spent on D/C: > 30 Minutes Counseling Services Smoking & Tobacco Cessation: N/A CODING VISIT-PSYCHIATRY Date of Service: Oct 10, 2024 Billing Provider: ARTHUR CARPENTER Psych Common Visit Codes: 28514-IMG/OBS DISCH DAY >30min Problem Qualifiers (1) MDD (major depressive disorder): (2) Psychosis: (3) Bulimia nervosa: Qualified Codes: F50.20 - Bulimia nervosa, unspecified ARTHUR CARPENTER Oct 10, 2024 14:53
== END 2024-10-10 17:52 | disposition home or self-care (01) | DRG 885 ==
LOC: ADULT MH 20:32
PROVIDERS: ADMIT Psychiatry & Neurology Psychiatry; ATTEND Psychiatry & Neurology Psychiatry
DX: F32.2 Major depressive disorder, single episode, severe without psychotic features (principal); F50.20 Bulimia nervosa, unspecified; R45.851 Suicidal ideations; I10 Essential (primary) hypertension; F41.9 Anxiety disorder, unspecified; F12.90 Cannabis use, unspecified, uncomplicated; F10.90 Alcohol use, unspecified, uncomplicated; Z68.23 Body mass index [BMI] 23.0-23.9, adult; Z86.59 Personal history of other mental and behavioral disorders; Z91.148 Patient's other noncompliance with medication regimen for other reason; Z79.899 Other long term (current) drug therapy
CPT/HCPCS: 36415; 80053; 80061; 83036; 85025; 87081; A6258; Q0177